=== PATIENT | female | born 1995 | race African-American/Black ===

== ENCOUNTER 2023-03-01 02:13 | Emergency (ER) | payer OTHER ==
[2023-03-01 02:20] VITALS: BP 104/64; PULSE 91; RESP 18; TEMP 98.2; BMI 34.7
[2023-03-01 03:04] LABS: THROAT:GRP A STREP DETECTED (NOTDETECTED)
[2023-03-01] MEDS ORDERED: IBUPROFEN 600 MG TABLET (FP) PO ONE ×2 (03:19→03:23)
[2023-03-01] MEDS ORDERED: PENICILLIN G BENZATHINE 1,200,000 UNIT/2 ML PFS IM ONE ×2 (03:19→03:24)
[2023-03-01] MEDS ORDERED: DEXAMETHASONE LIQUID 0.5 MG/5 ML PO ONE (03:19)
[2023-03-01] MEDS ORDERED: DEXAMETHASONE SOD PHOSPHATE 10 MG/1 ML VIAL ONE (03:23)
== END 2023-03-01 03:42 | disposition home or self-care (01) ==
LOC: JER 02:13
DX: R07.0 Pain in throat (principal); R50.9 Fever, unspecified; J02.0 Streptococcal pharyngitis; R13.10 Dysphagia, unspecified; Z20.822 Contact with and (suspected) exposure to COVID-19
CPT/HCPCS: 0241U-QW; 87651; 99284-25

== ENCOUNTER 2023-10-27 22:05 | Emergency (ER) | payer OTHER ==
[2023-10-27 22:20] VITALS: BP 116/78; PULSE 90; RESP 20; TEMP 98.3; BMI 35.5
[2023-10-27] MEDS ORDERED: IBUPROFEN 400 MG TABLET (FP) PO ONE ×2 (23:37→23:38)
== END 2023-10-28 00:35 | disposition home or self-care (01) ==
LOC: JER 22:05
DX: R07.0 Pain in throat (principal); J02.9 Acute pharyngitis, unspecified
CPT/HCPCS: 87651; 99283-25